=== PATIENT | female | born 1935 | race Caucasian/White ===

== ENCOUNTER 2016-08-14 20:27 | Emergency (ER) | payer OTHER ==
[~2016-08-14] VITALS: Ht 172.7 cm; Wt 70.0 kg
[2016-08-14 20:30] VITALS: BP 135/69; PULSE 54; RESP 18; O2SAT 99
[2016-08-14] MEDS ORDERED: CEFP500T4 PO (20:41)
[2016-08-14] MEDS ORDERED: ESCI10TA52 PO (20:41)
[2016-08-14] MEDS ORDERED: GALA24CA PO (20:41)
--- NOTE | 2016-08-14 20:42 | ED.REPORT ---
HPI-Head Prob / Injury Date of Service Aug 14, 2016 ED Provider: Kar Petersen DO Patient is a 81 year old female with a history of Alzheimer's who presents to the ED due to a fall. Associated symptoms include a headache and a laceration to the back of her head. She denies dizziness, losing consciousness, neck pain or extremity pain. The patient reports that she was dancing with her when she tripped on a chair and fell backwards. She states that she hit her head on the floor, which is linoleum but concrete underneath. Nursing Notes Stated Complaint: FALL,HEAD INJURY Chief Complaint: Head, Face, Neck Trauma Nursing Notes Reviewed: Yes Allergies: Coded Allergies: No Known Allergies (Unverified , 08/14/16) Scheduled Cefprozil (Cefprozil) 500 Mg Tablet 500 MG PO BID Escitalopram Oxalate (Escitalopram Oxalate) 10 Mg Tablet 5 MG PO DAILY Galantamine ER (Galantamine ER) 24 Mg Cap24h.pel 24 MG PO DAILY General Time Seen by Provider: 20:42 Chief Complaint Blunt head trauma Hx Obtained From: Patient Arrived By: Walk-in Onset Occurred: Just prior to arrival Symptom Duration: Since onset Caused by: Fall from (tripping) Context: Occurred at: Home Location: : Occipital region L Quality: Painful Severity: Current: Mild Associated with: Denies: Confusion, Vomiting Immunizations: Tetanus up to date Recent Healthcare: No recent doctor visit, No recent hospitalization Similar Sx Previous: No Past Medical History Past Medical History Alzheimer's Smoking History Unknown if Ever Smoker Social History Other Social History: Good social support, Ambulatory Status Independent Review of Systems Constitutional: Denies: Fever GI: Denies: Nausea, Vomiting Musculoskeletal: Denies: Back pain, Extremity pain, Neck pain Neurologic: Reports: Headache, Denies: Change LOC, Dizziness, Problem walking, Vision change Complete sys rev & neg: except as marked. Respiratory: Denies: Non-productive cough, Shortness of breath Physical Exam Initial Vital Signs Vital Signs (First) Date Time Temp Pulse Resp B/P Pulse Ox O2 Delivery O2 Flow Rate FiO2 08/14/16 20:30 36.1 54 18 135/69 99 Room Air Initial VS: Reviewed General/Constitutional: Awake, Alert, No acute distress Head / Eyes: Normocephalic, PERRL, EOMI laceration to the back of the head ENT: Atraumatic, Airway patent, Mucous membranes moist Neck: Atraumatic, Supple, Full range of motion Neurologic: Oriented X3, Speech NL Respiratory / Chest: Atraumatic, No respiratory distress Cardiovascular: Heart rate NL, Regular rhythm, Heart sounds NL Upper Extremity / MS: Atraumatic, Full range of motion Lower Extremity / Pelvis / MS: Atraumatic, Full range of motion Skin: Atraumatic, Color NL, No rash, Warm, Dry Psychiatric: Affect NL, Mood NL Interpretation & Diagnostics CT Head Interpretation IMPRESSION: 1. No acute intracranial abnormality. 2. Moderate cerebral volume loss and mild chronic white matter small vessel changes. Dictated by: Stefano Musa M.D. on 08/14/2016 at 21:51 Approved by: Stefano Musa M.D. on 08/14/2016 at 21:52 Interpretation / Wet Read by: Interpret - Radiologist Procedures Laceration Management Time: 23:01 Procedure Performed by: ED physician Consent / Setup / Site Prep: Consent from patient, Time-out performed, Hand hygiene observed Location of Wound: back of the head Wound Length: 5 cm Wound Preparation: Betadine, Normal saline Debridement: Yes Irrigation: Copious Repair Skin: Mliady # Sutures - Skin: 6 Post-Procedure / Complications: Antibiotic oint applied, Dressing applied, No complications, Condition improved, Tolerated procedure well, Patient stable Re-Eval/Medical Decision Med Decision/Clinical Course Taking into account her age and underlying dementia it is very difficult to assess her mental status. As such I discussed CT scan with her and her . They concur. Evidently she hit her head quite aggressively. CT scan is reassuring. The wound was closed and she looked great. Routine wound care instructions and head injury instructions were provided Re-Evaluation/Progress #1: Time of Eval: 22:14 Re-Evaluation/Progress Note: Discussed plan for laceration management Re-Evaluation/Progress #2: Time of Eval: 23:00 Re-Evaluation/Progress Note: Discussed plan for discharge. The patient understands and agrees to the plan for discharge. All questions were addressed. Counseled Regarding: Diagnosis, Lab results, Need for follow-up, When/why to return to ED Discharge & Departure Primary Impression: Scalp laceration Encounter type: initial encounter Qualified Code: S01.01XA - Laceration without foreign body of scalp, initial encounter Additional Impression: Fall Encounter type: initial encounter Qualified Code: W19.XXXA - Unspecified fall, initial encounter Disposition: Home All VS Reviewed: Yes Condition: Stable Additional Instructions: Your CT results were normal and reassuring. You can take Tylenol as directed for pain. Keep the wound clean and dry. Keep antibiotic ointment on the wound. Have a wound check in 72 hours. You can have this done at the emergency department or with your primary care physician. The milady should be removed 7-10 days. You can come back to the emergency department or have this done by your primary care physician. Follow up with your primary care physician next week. Return to the emergency department if you develop any new or concerning symptoms including signs of infection, redness or increasing pain. Torin Attestation Portions of this note were transcribed by Love Benson. I, Dr. Petersen personally performed the history, physical exam and medical decision-making; I reviewed and confirmed the accuracy of the information in the transcribed note. Signed by: Torin Morales, 08/14/16 and 2229 Kar Petersen DO Aug 14, 2016 20:42 Susie Benson Aug 14, 2016 20:52
[2016-08-14] MEDS ORDERED: Lidocaine 1%/Epi 1:100,000 30 mL MDV INFILTRATE ONE (20:50)
--- NOTE | 2016-08-14 21:54 | DRSVH ---
PROCEDURE: CT BRAIN WITHOUT CONTRAST ([id number]) INDICATIONS: fall, head injury TECHNIQUE: Noncontrast 4.5 mm thick angled axial sections acquired from the foramen magnum to the vertex, with c oronal reformats. COMPARISON: None. FINDINGS: Image quality: Excellent. CSF spaces: Basal cisterns are patent. No extra-axial fluid collections. The ventricles are symmet tony in size and shape. There is moderate cerebral volume loss, with resultant ventricular and sulcal prominence. Brain: No intracranial hemorrhage, mass, or mass effect. There are subcortical, periventricular and deep white matter hypodensities consistent with mild chronic small vessel ischemic changes. There i s intracranial internal carotid artery atherosclerosis. Skull and face: Calvarium and visualized facial bones appear intact, without suspicious lesions. Sinuses: Visualized sinuses and mastoids are clear. IMPRESSION: 1. No acute intracranial abnormality. 2. Moderate cerebral volume loss and mild chronic white matter small vessel changes. Dictated by: Stefano Musa M.D. on 08/14/2016 at 21:51 Approved by: Stefano Musa M.D. on 08/14/2016 at 21:52
[2016-08-14 23:12] VITALS: BP 133/55; PULSE 60; RESP 12; O2SAT 98
== END 2016-08-14 23:15 | disposition home or self-care (01) ==
LOC: SED 20:27
DX: S01.01XA Laceration without foreign body of scalp, initial encounter (principal); W01.198A Fall on same level from slipping, tripping and stumbling with subsequent striking against other object, initial encounter; Y93.41 Activity, dancing; Y99.8 Other external cause status; Y92.019 Unspecified place in single-family (private) house as the place of occurrence of the external cause; G30.9 Alzheimer's disease, unspecified; Z95.0 Presence of cardiac pacemaker

== ENCOUNTER 2016-08-17 09:29 | Emergency (ER) | payer OTHER ==
[~2016-08-17 09:29] MED LIST: CEFP500T4 PO; ESCI10TA52 PO; GALA24CA PO
[2016-08-17 09:39] VITALS: BP 127/60; PULSE 54; RESP 14; O2SAT 99
== END 2016-08-17 10:00 | disposition home or self-care (01) ==
LOC: SED 09:29
DX: S01.01XD Laceration without foreign body of scalp, subsequent encounter (principal); W01.0XXD Fall on same level from slipping, tripping and stumbling without subsequent striking against object, subsequent encounter; Y93.89 Activity, other specified; Y93.41 Activity, dancing; Y92.9 Unspecified place or not applicable

== ENCOUNTER 2016-08-24 09:21 | Emergency (ER) | payer OTHER ==
[~2016-08-24] VITALS: Ht 170.2 cm; Wt 63.6 kg
[2016-08-24 09:27] VITALS: BP 155/77; PULSE 58; RESP 12
== END 2016-08-24 09:42 | disposition home or self-care (01) ==
LOC: SED 09:21
DX: Z48.02 Encounter for removal of sutures (principal)